=== PATIENT | male | born 1985 | race Hispanic/Latino ===

== ENCOUNTER 2018-03-15 08:53 | Emergency (ER) | payer SELFPAY ==
[2018-03-15 09:22] LABS: Absolute Lymphocytes (CBC) 1.3 K/uL (0.7-4.9); Absolute Monocytes 0.5 K/uL (0.1-1.3); Absolute Neutrophil 6.5 K/uL (1.8-8.0); Basophils % 0.8 % (0-1.3); Eosinophils % 0.5 % (0-4.4); Hematocrit 44.4 % (39.6-49.0); Lymphocytes % 15.3 % (15.3-44.8); MCH 31.7 pg (27.0-35.0); MCV 90.5 fL (80-100); MPV 8.7 fL (7.6-11.3); Monocytes % 5.8 % (3.3-12.3); RBC Red Blood Cell Count 4.91 M/uL (4.33-5.43)
[2018-03-15 09:28] LABS: BUN Blood Urea Nitrogen 18 mg/dL (7-18); Bicarbonate 27 mmol/L (21-32); Glucose Level 116 mg/dL (74-106); Potassium 4.1 mmol/L (3.5-5.1); Sodium Level 140 mmol/L (136-145); Troponin (Emerg Dept Use Only) < 0.02 ng/mL (0.0-0.045)
--- NOTE | 2018-03-15 09:46 | RAD REPORT ---
EXAM DESCRIPTION: RAD - Chest Single View - 03/15/2018 9:29 am CLINICAL HISTORY: Left-sided chest pain COMPARISON: None. TECHNIQUE: AP portable chest image was obtained 0907 hours . FINDINGS: Lungs are clear. Heart and vasculature are normal. No measurable pleural effusion and no p neumothorax. No acute bony abnormality seen. No acute aortic findings suspected. IMPRESSION: No acute cardiopulmonary process.
[2018-03-15] MEDS ORDERED: KETOROLAC 30 MG/ML INJ ONE ×2 (10:01→10:03)
--- NOTE | 2018-03-15 10:07 | ER ---
Nurse's Notes [facility] Name: Anirudh Mcintyre Age: 32 yrs Sex: Male : 1985 Arrival Date: 03/15/2018 Time: 08:56 Bed 6 Private MD: Diagnosis: Chest pain, unspecified Presentation: 03/15 08:57 Presenting complaint: EMS states: Pt c/o L sided chest pain in pectoral area, dizziness ph and chelly hand numbness/tingling, reports recently starting to work out/exercise, pain reproducible upon palpation, VSS. Transition of care: patient was not received from another setting of care. Onset of symptoms was March 15, 2018. Risk Assessment: Do you want to hurt yourself or someone else? Patient reports no desire to harm self or others. Initial Sepsis Screen: Does the patient meet any 2 criteria? No. Patient's initial sepsis screen is negative. Does the patient have a suspected source of infection? No. Patient's initial sepsis screen is negative. Care prior to arrival: IV initiated. 20 GA, in the left antecubital area. 08:57 Method Of Arrival: EMS: [facility] 08:57 Acuity: RONALD 3 ph Historical: - Allergies: 09:00 No Known Allergies; ph - Home Meds: 09:00 None [Active]; ph - PMHx: 09:00 None; ph - PSHx: 09:00 None; ph - Immunization history:: Adult Immunizations unknown. - Social history:: Smoking status: Patient uses tobacco products, smokes one pack cigarettes per day. - Ebola Screening: : No symptoms or risks identified at this time. Screenin:01 Abuse screen: Denies threats or abuse. Denies injuries from another. Nutritional ph screening: No deficits noted. Tuberculosis screening: No symptoms or risk factors identified. Fall Risk None identified. Assessment: 09:01 General: Appears in no apparent distress. comfortable, slender, well groomed, Behavior ph is calm, cooperative, appropriate for age, Denies fever, feeling ill. Pain: Complains of pain in anterior aspect of left upper chest Pain does not radiate. Pain currently is 4 out of 10 on a pain scale. Quality of pain is described as sharp, Pain began 3 hours ago. Neuro: Level of Consciousness is awake, alert, obeys commands, Oriented to person, place, time, situation, Grinding Wheel Dresser are equal bilaterally Reports dizziness, numbness paresthesias in right hand and left hand Denies weakness blurred vision headache. Cardiovascular: Reports chest pain, lightheadedness, Denies nausea, palpitations, shortness of breath, vomiting, Capillary refill < 3 seconds in bilateral fingers Patient's skin is warm and dry. Chest pain is located in left anterior chest wall is aggravated by activity. Respiratory: Airway is patent Respiratory effort is even, unlabored. GI: No signs and/or symptoms were reported involving the gastrointestinal system. Derm: Skin is intact, is healthy with good turgor, Skin is pink, warm \T\ dry. Musculoskeletal: Circulation, motion, and sensation intact. Range of motion: intact in all extremities. 10:00 Reassessment: Patient appears in no apparent distress at this time. Patient and/or ph family updated on plan of care and expected duration. Pain level reassessed. Patient is alert, oriented x 3, equal unlabored respirations, skin warm/dry/pink. Pt resting quietly, awaiting lab and radiology results. 10:40 Reassessment: Patient appears in no apparent distress at this time. Patient and/or ph family updated on plan of care and expected duration. Pain level reassessed. Patient is alert, oriented x 3, equal unlabored respirations, skin warm/dry/pink. Pt given work note and d/c home w/ friend. Vital Signs: 08:59 BP 115 / 69; Pulse 74; Resp 18; Temp 97.8; Pulse Ox 100% on R/A; Weight 65.77 kg; ph Height 5 ft. 7 in. (170.18 cm); Pain 4/10; 10:00 BP 118 / 74; Pulse 76; Resp 18; Pulse Ox 98% on R/A; ph 10:40 BP 114 / 64; Pulse 69; Resp 18; Temp 97.8; Pulse Ox 98% on R/A; ph 08:59 Body Mass Index 22.71 (65.77 kg, 170.18 cm) ph ED Course: 08:56 Patient arrived in ED. ph 08:56 Terry Lobo MD is Attending Physician. gs 08:59 Triage completed. ph 09:00 Arm band placed on. ph 09:00 Maintain EMS IV. Dressing intact. Good blood return noted. Site clean \T\ dry. Gauge \T\ ph site: 20 G LAC. Patient maintains SpO2 saturation greater than 95% on room air. 09:01 Patient has correct armband on for positive identification. Placed in gown. Bed in low ph position. Call light in reach. Side rails up X 1. court monitor on. Pulse ox on. NIBP on. Warm blanket given. 09:03 EKG done, by ED staff, reviewed by Terry Lobo MD. formerly [facility] 09:16 Chip King, RN is Primary Nurse. lt1 09:19 XRAY Chest (1 view) In Process Unspecified. EDMS 10:05 Manuel Navas MD is Referral Physician. 10:40 No provider procedures requiring assistance completed. IV discontinued, intact, ph bleeding controlled, No redness/swelling at site. Pressure dressing applied. Administered Medications: 09:55 Drug: TORadol 15 mg Route: IVP; Site: left forearm; 10:30 Follow up: Response: No adverse reaction; Pain is decreased ph Outcome: 10:06 Discharge ordered by . 10:40 Discharged to home ambulatory, with friend. ph 10:40 Condition: good 10:40 Discharge instructions given to patient, Instructed on discharge instructions, follow up and referral plans. medication usage, Demonstrated understanding of instructions, follow-up care, medications, Prescriptions given X 1. 10:43 Patient left the ED. ss Signatures: Dispatcher [employer] EDSD Suzanne Birmingham RN RN Lori Sparks RN RN Yazmin Jarrell formerly [facility] Terry Lobo MD MD Myrtle Espitia lt1
--- NOTE | 2018-03-15 10:07 | EDPHYS ---
Physician Documentation [facility] Name: Anirudh Mcintyre Age: 32 yrs Sex: Male : 1985 Arrival Date: 03/15/2018 Time: 08:56 Bed 6 Private MD: ED Physician Terry Lobo HPI: 03/15 09:54 This 32 yrs old Male presents to ER via EMS with complaints of Chest Pain. gs 09:54 The patient or guardian reports chest pain that is located primarily in the anterior gs chest wall. The pain does not radiate. Associated signs and symptoms: Pertinent negatives: diaphoresis, palpitations, shortness of breath, vomiting. The chest pain is described as dull. Duration: The patient or guardian reports a single episode, that is still ongoing, and unchanged. Modifying factors: the symptoms are aggravated by deep breath. Severity of pain: At its worst the pain was moderate in the emergency department the pain is unchanged. The patient has experienced similar episodes in the past, a few times. flu 2 weeks ago. Historical: - Allergies: 09:00 No Known Allergies; ph - Home Meds: 09:00 None [Active]; ph - PMHx: 09:00 None; ph - PSHx: 09:00 None; ph - Immunization history:: Adult Immunizations unknown. - Social history:: Smoking status: Patient uses tobacco products, smokes one pack cigarettes per day. - Ebola Screening: : No symptoms or risks identified at this time. ROS: 09:54 All other systems are negative. gs Exam: 09:54 Head/Face: Normocephalic, atraumatic. Eyes: Pupils equal round and reactive to light, gs extra-ocular motions intact. Lids and lashes normal. Conjunctiva and sclera are non-icteric and not injected. Cornea within normal limits. Periorbital areas with no swelling, redness, or edema. ENT: Nares patent. No nasal discharge, no septal abnormalities noted. Tympanic membranes are normal and external auditory canals are clear. Oropharynx with no redness, swelling, or masses, exudates, or evidence of obstruction, uvula midline. Mucous membranes moist. Neck: Trachea midline, no thyromegaly or masses palpated, and no cervical lymphadenopathy. Supple, full range of motion without nuchal rigidity, or vertebral point tenderness. No Meningismus. Chest/axilla: Normal chest wall appearance and motion. Nontender with no deformity. No lesions are appreciated. Cardiovascular: Regular rate and rhythm with a normal S1 and S2. No gallops, murmurs, or rubs. Normal PMI, no JVD. No pulse deficits. Respiratory: Lungs have equal breath sounds bilaterally, clear to auscultation and percussion. No rales, rhonchi or wheezes noted. No increased work of breathing, no retractions or nasal flaring. Abdomen/GI: Soft, non-tender, with normal bowel sounds. No distension or tympany. No guarding or rebound. No evidence of tenderness throughout. Back: No spinal tenderness. No costovertebral tenderness. Full range of motion. Skin: Warm, dry with normal turgor. Normal color with no rashes, no lesions, and no evidence of cellulitis. MS/ Extremity: Pulses equal, no cyanosis. Neurovascular intact. Full, normal range of motion. Neuro: Awake and alert, GCS 15, oriented to person, place, time, and situation. Cranial nerves II-XII grossly intact. Motor strength 5/5 in all extremities. Sensory grossly intact. Cerebellar exam normal. Normal gait. 09:54 Constitutional: The patient appears alert, awake. 09:54 ECG was reviewed by the Attending Physician. Vital Signs: 08:59 BP 115 / 69; Pulse 74; Resp 18; Temp 97.8; Pulse Ox 100% on R/A; Weight 65.77 kg; ph Height 5 ft. 7 in. (170.18 cm); Pain 4/10; 10:00 BP 118 / 74; Pulse 76; Resp 18; Pulse Ox 98% on R/A; ph 10:40 BP 114 / 64; Pulse 69; Resp 18; Temp 97.8; Pulse Ox 98% on R/A; ph 08:59 Body Mass Index 22.71 (65.77 kg, 170.18 cm) ph MDM: 08:57 Patient medically screened. gs 09:54 Differential diagnosis: acute myocardial infarction, chest wall pain, pleurisy, gs pneumonia. Data reviewed: vital signs, nurses notes. Counseling: I had a detailed discussion with the patient and/or guardian regarding: the historical points, exam findings, and any diagnostic results supporting the discharge/admit diagnosis, lab results, radiology results, the need for outpatient follow up. Response to treatment: the patient's symptoms have resolved after treatment, and as a result, I will discharge patient. 03/15 08:59 Order name: Basic Metabolic Panel; Complete Time: 09:54 03/15 08:59 Order name: CBC with Diff; Complete Time: 09:54 03/15 08:59 Order name: Troponin (emerg Dept Use Only); Complete Time: 09:54 03/15 08:59 Order name: XRAY Chest (1 view); Complete Time: 09:54 03/15 08:59 Order name: EKG; Complete Time: 09:01 03/15 08:59 Order name: Cardiac monitoring; Complete Time: 09:03 03/15 08:59 Order name: EKG - Nurse/Tech; Complete Time: 09:04 03/15 08:59 Order name: IV Saline Lock; Complete Time: 09:04 03/15 08:59 Order name: Labs collected and sent; Complete Time: 09:04 03/15 08:59 Order name: O2 Per Protocol; Complete Time: 09:04 03/15 08:59 Order name: O2 Sat Monitoring; Complete Time: 09:04 EC:54 Rate is 72 beats/min. Rhythm is regular. MA interval is normal. QRS interval is normal. gs T waves are Normal. No ST changes noted. Clinical impression: Normal ECG. Interpreted by me. Administered Medications: 09:55 Drug: TORadol 15 mg Route: IVP; Site: left forearm; 10:30 Follow up: Response: No adverse reaction; Pain is decreased ph Disposition: 03/15/18 10:06 Discharged to Home. Impression: Chest pain, unspecified. - Condition is Stable. - Discharge Instructions: Nonspecific Chest Pain. - Prescriptions for Naprosyn 500 mg Oral Tablet - take 1 tablet by ORAL route 2 times per day take with food; 20 tablet. - Medication Reconciliation Form, Thank You Letter, Antibiotic Education, Prescription Opioid Use, Work release form form. - Follow up: Manuel Navas MD; When: 2 - 3 days; Reason: Re-evaluation by your physician. Signatures: Dispatcher [facility] Suzanne Colin RN RN ss Lori Sparks RN RN Terry Lobo MD MD Corrections: (The following items were deleted from the chart) 10:43 10:06 03/15/2018 10:06 Discharged to Home. Impression: Chest pain, unspecified. ss Condition is Stable. Forms are Medication Reconciliation Form, Thank You Letter, Antibiotic Education, Prescription Opioid Use. Follow up: Manuel Navas; When: 2 - 3 days; Reason: Re-evaluation by your physician. gs
--- NOTE | 2018-03-15 15:16 | EKG ---
Test Date: 2018-03-15 Test Time: 09:00:56 Dowel Maker: NAE MEASUREMENT RESULTS: Intervals: Rate: 72 FL: 138 QRSD: 96 QT: 366 QTc: 400 [place]: P: -1 FL: 138 QRS: 78 T: 51 INTERPRETIVE STATEMENTS: Normal sinus rhythm Normal ECG No previous ECG available for comparison Electronically Signed On 03-15-18 15:15:57 MARKETING COMMUNICATIONS MANAGER by Manuel Navas
== END 2018-03-15 10:43 | disposition home or self-care (01) ==
LOC: ER 08:53
DX: R07.9 Chest pain, unspecified (principal); F17.210 Nicotine dependence, cigarettes, uncomplicated
CPT/HCPCS: 36415; 71045; 80048; 84484; 85025; 93005; 96374; 99285